=== PATIENT | female | born 1985 | race Caucasian/White ===

== ENCOUNTER 2018-10-12 15:35 | Inpatient (IN) ==
[2018-10-12] MEDS ORDERED: DINOPROSTONE VAG GEL 10 MG SYRINGE VAG ONE ×2 (15:57→16:10)
[2018-10-12] MEDS: LACTATED RINGERS 1,000 ML IV SCH ×2 (16:05→23:20)
[2018-10-12] MEDS ORDERED: ONDANSETRON 4 MG/2 ML VIAL IV PRN (16:17)
[2018-10-12] MEDS ORDERED: MEPERIDINE 50 MG/1 ML VIAL IV PRN (16:17)
[2018-10-12 16:48] LABS: Basophils % 0.3 % (0.0-0.8); Eosinophils # 0.1 10*3/uL (0.0-0.87); Eosinophils % 1.1 % (0.00-10.9); Hematocrit 34.6 VOL% (35.7-47.0); Immature Granulocytes % 0.7 %; Immature Granulocytes Absolute 0.05 #; Lymphocytes % 27.8 % (21.3-54.2); Mean Corpuscular HGB Conc 31.8 GM/DL (32-36); Mean Corpuscular Hemoglobin 28 PG (27-34); Mean Corpuscular Volume 87.4 FL (87-102); Mean Platelet Volume 11.9 FL (9.6-12.0); Monocytes # 0.5 10*3/uL (0.11-0.8); Monocytes % 7.1 % (1.7-12.7); Neutrophils # 4.5 10*3/uL (1.4-7.4); Platelet Count 230 T/CUMM (130-400); Red Blood Count 3.96 MC/CUMM (3.8-5.5); Red Cell Distribution Width 13.3 % (9.3-17.3); White Blood Count 7.2 T/CUMM (4-12)
[2018-10-12 17:03] LABS: Alanine Aminotransferase 16 U/L (13-56); Albumin 2.7 G/DL (3.4-5.0); Alkaline Phosphatase 121 U/L (45-117); Aspartate Amino Transferase 14 U/L (0-37); Bilirubin,Total < 0.39 MG/DL (0.2-1.0); Blood Urea Nitrogen 11 MG/DL (7-18); Calcium 8.6 MG/DL (8.5-10.1); Glucose 81 MG/DL (74-106); Potassium 3.8 MMOL/L (3.5-5.1); Sodium 136 MMOL/L (136-145); Total Protein 6.9 G/DL (6.4-8.3)
[2018-10-12] MEDS ORDERED: CITRIC ACID/SODIUM CITRATE 30 ML UDCUP PO ONE (23:01)
[2018-10-12] MEDS ORDERED: FAMOTIDINE 20 MG/2 ML VIAL IV ONE (23:01)
[2018-10-12] MEDS ORDERED: ePHEDrine 50 MG/ML AMP ONE (23:10)
[2018-10-12] MEDS ORDERED: fentaNYL 2 MCG/ROPIV 0.2% EPID 100 ML EPIDURAL SCH (23:30)
[2018-10-12] MEDS: fentaNYL 2 MCG/ROPIV 0.2% EPID 100 ML EPIDURAL SCH (23:45)
[2018-10-13] MEDS ORDERED: TERBUTALINE 1 MG/1 ML VIAL SUBCUT ONE (00:02)
[2018-10-13] MEDS ORDERED: TERBUTALINE 1 MG/1 ML VIAL SUBCUT PRN (00:10)
[2018-10-13 00:17] LABS: Apearance,Urine CLEAR (Clear); Bilirubin,Urine Negative (Negative); Blood, Urine Negative (Negative); Glucose,Urine (UA) Negative (Negative); Ketones,Urine Negative (Negative); Nitrite,Urine Negative (Negative); Protein,Urine Negative; RBC,Urine <1 /HPF (0-4); Urine Color Straw (Yellow); Urine Specific Gravity 1.009 (1.001-1.035); Urine Urobilinogen < 2.0 EU/DL (0.2-1.0); WBC,Urine <1 /HPF (0-6)
[2018-10-13] MEDS ORDERED: ePHEDrine 50 MG/ML AMP IV ONE (00:27)
[2018-10-13] MEDS ORDERED: OXYTOCIN/LR 20 UNIT/1,000 ML BAG IV SCH (02:00)
[2018-10-13] MEDS: LACTATED RINGERS 1,000 ML IV SCH ×2 (02:43→17:48)
[2018-10-13] MEDS: fentaNYL 2 MCG/ROPIV 0.2% EPID 100 ML EPIDURAL SCH ×2 (08:37→15:56)
[2018-10-13] MEDS ORDERED: AMPICILLIN INJ 2,000 MG in SODIUM CHLORIDE 0.9% 100 ML IV SCH (18:00)
[2018-10-13] MEDS ORDERED: METHYLERGONOVINE 0.2 MG/1 ML AMP ONE (18:25)
[2018-10-13] MEDS ORDERED: OXYTOCIN/LR 0 UNIT/0 ML BAG IV ONE (18:25)
[2018-10-13] MEDS ORDERED: CARBOPROST TROMETHAMINE 250 MCG/ML AMP IM ONE (18:25)
[2018-10-13] MEDS ORDERED: TRANEXAMIC ACID 1,000 MG/10 ML VIAL ONE (18:25)
[2018-10-13] MEDS ORDERED: miSOPROStol 200 MCG TABLET ONE (18:25)
[2018-10-13] MEDS ORDERED: OXYTOCIN/LR 30 UNIT/1,000 ML BAG IV ONE (18:30)
[2018-10-13 20:37] LABS: Cord Arterial Blood HCO3 20.6 MMOL/L
[2018-10-13 20:45] LABS: Cord Venous Blood HCO3 22.2 MMOL/L; Cord Venous Blood PCO2 37.3 MMHG; Cord Venous Blood PO2 29.4
[2018-10-13] MEDS ORDERED: WITCH HAZEL PADS 100/JAR TOP PRN (20:47)
[2018-10-13] MEDS ORDERED: LANOLIN 50% CREAM 0.3 OZ TUBE TOP PRN (20:47)
[2018-10-13] MEDS ORDERED: HYDROCORTISONE 2.5% RECTAL CREAM 30 GM TUBE TOP PRN (20:47)
[2018-10-13] MEDS ORDERED: oxyCODONE/ACETAMINOPHEN 5-325 MG TABLET PO PRN (20:47)
[2018-10-13] MEDS ORDERED: DIPH/TET/ACEL PERT BOOSTER VACCINE 0.5 ML VIAL IM ONE (20:47)
[2018-10-13] MEDS ORDERED: BENZOCAINE 20%/MENTHOL 0.5% SPRAY 56 GM CAN TOP PRN (20:47)
[2018-10-13] MEDS ORDERED: ONDANSETRON 4 MG/2 ML VIAL IV PRN (20:47)
[2018-10-13] MEDS ORDERED: RHO(D) IMMUNE GLOBULIN 300 MCG SYRINGE IM ONE (20:47)
[2018-10-13] MEDS ORDERED: MEASLES/MUMPS/RUBELLA VACCINE 0.5 ML VIAL SUBCUT ONE (20:47)
[2018-10-13] MEDS ORDERED: OXYTOCIN/LR 20 UNIT/1,000 ML BAG IV ONE (20:47)
[2018-10-13] MEDS ORDERED: ACETAMINOPHEN 325 MG TABLET PO PRN (20:47)
[2018-10-13] MEDS ORDERED: BISACODYL 10 MG SUPP RECTAL PRN (20:47)
[2018-10-13] MEDS: DOCUSATE SODIUM 100 MG CAPSULE PO SCH (21:05)
[2018-10-13] MEDS: IBUPROFEN 800 MG TABLET PO PRN (23:34)
[2018-10-14 06:25] LABS: Basophils % 0.2 % (0.0-0.8); Eosinophils # 0.1 10*3/uL (0.0-0.87); Eosinophils % 0.5 % (0.00-10.9); Hematocrit 30.1 VOL% (35.7-47.0); Hemoglobin 9.7 GM/DL (12.0-16.0); Immature Granulocytes % 0.5 %; Immature Granulocytes Absolute 0.07 #; Lymphocytes # 2.4 10*3/uL (1.4-4.0); Lymphocytes % 18.3 % (21.3-54.2); Mean Corpuscular HGB Conc 32.2 GM/DL (32-36); Mean Corpuscular Hemoglobin 28 PG (27-34); Mean Corpuscular Volume 87.5 FL (87-102); Monocytes % 7.2 % (1.7-12.7); Neutrophils # 9.6 10*3/uL (1.4-7.4); Neutrophils % 73.3 % (38.7-73.9); Platelet Count 234 T/CUMM (130-400); Red Blood Count 3.44 MC/CUMM (3.8-5.5); Red Cell Distribution Width 13.8 % (9.3-17.3); White Blood Count 13.1 T/CUMM (4-12)
[2018-10-14] MEDS: DOCUSATE SODIUM 100 MG CAPSULE PO SCH ×2 (08:00→21:30)
[2018-10-14] MEDS: IBUPROFEN 800 MG TABLET PO PRN (11:35)
[2018-10-14] MEDS: oxyCODONE/ACETAMINOPHEN 5-325 MG TABLET PO PRN (21:38)
[2018-10-15] MEDS: oxyCODONE/ACETAMINOPHEN 5-325 MG TABLET PO PRN (03:47)
[2018-10-15] MEDS: DOCUSATE SODIUM 100 MG CAPSULE PO SCH (08:19)
[2018-10-15] MEDS: IBUPROFEN 800 MG TABLET PO PRN (11:36)
[2018-10-15 16:05] VITALS: BP 140/71
== END 2018-10-15 17:30 | disposition home or self-care (01) | DRG 807 ==
LOC: N.LDOUT 15:35 → RMOUTPBED 15:37 → N.LD 15:37 → N.OB 10-13 23:20
PROVIDERS: ADMIT Obstetrics & Gynecology; ATTEND Obstetrics & Gynecology